=== PATIENT | female | born 1960 | race Caucasian/White ===

== ENCOUNTER 2016-07-11 06:07 | Day surgery (SDC) | payer OTHER ==
[2016-07-06 11:47] VITALS: BMI 29.4
[2016-07-11] MEDS ORDERED: morphine CARPU-JECT 10 MG/1 ML DISP.SYRIN ONE (07:09)
[2016-07-11] MEDS ORDERED: KETOROLAC TROMETHAMINE 60 MG/2 ML VIAL ONE (07:09)
[2016-07-11] MEDS ORDERED: BUPIVACAINE HCL 0.25% 125 MG/50 ML VIAL ONE (07:09)
[2016-07-11] MEDS ORDERED: EPINEPHrine 1:1,000 1 MG/1 ML - 30ML VIAL (INJECTION) ONE (07:10)
[2016-07-11] MEDS ORDERED: MIDAZOLAM HCL 2 MG/2 ML SINGLE DOSE VIAL ONE (07:37)
[2016-07-11] MEDS ORDERED: LIDOCAINE HCL/PF 2% SDV 5ML VIAL ONE (07:37)
[2016-07-11] MEDS ORDERED: PROPOFOL 20 ML ONE ×2 (07:37→09:16)
[2016-07-11] MEDS ORDERED: SUCCINYLCHOLINE CHLORIDE 200 MG/10 ML VIAL ONE (07:37)
[2016-07-11] MEDS ORDERED: ONDANSETRON 4 MG/2 ML VIAL ONE (08:21)
[2016-07-11] MEDS ORDERED: DEXAMETHASONE SOD PHOSPHATE 4 MG/1 ML VIAL ONE (08:21)
[2016-07-11] MEDS ORDERED: KETOROLAC TROMETHAMINE 30 MG/1 ML VIAL ONE ×2 (08:21→09:05)
[2016-07-11] MEDS ORDERED: BUPIVACAINE HCL/PF 0.25% (2.5MG/ML) 10 ML VIAL IJ ONE (08:28)
[2016-07-11] MEDS ORDERED: KETOROLAC TROMETHAMINE 30 MG/1 ML VIAL IM ONE (09:15)
[2016-07-11] MEDS ORDERED: LACTATED RINGERS SOLUTION 1,000 ML IV SCH (09:15)
[2016-07-11] MEDS ORDERED: oxyCODONE HCL 5 MG TABLET PO PRN (09:23)
[2016-07-11] MEDS ORDERED: ONDANSETRON 4 MG/2 ML VIAL IVPUSH PRN (09:23)
[2016-07-11 09:29] VITALS: TEMP 97.7
[2016-07-11 09:54] VITALS: PULSE 60
[2016-07-11 12:02] VITALS: BP 133/87
--- NOTE | 2016-07-11 12:36 | OP ---
DATE OF OPERATION: 07/11/2016 ANESTHESIOLOGIST: Ivana Dozier MD TYPE OF ANESTHESIA: LMA general. PREOPERATIVE DIAGNOSIS: Left knee complex medial meniscus tear. POSTOPERATIVE DIAGNOSIS: Left knee complex medial meniscus tear. PROCEDURE: Left knee arthroscopy, partial medial meniscectomy. Kefzol was given preoperatively for prophylaxis against infection. TOURNIQUET TIME: Approximately 20 minutes. Marcaine 0.25%,10 mL, was instilled in the skin prior to skin incision. At the conclusion of the procedure, 10 mg of morphine and 300 mg of Toradol were instilled in the knee for additional analgesia. SURGEON: Christ Stout MD INDICATIONS: The patient is a 55-year-old female with complaints of sharp stabbing left knee pain status post falling. She had an MRI showing a complex tear involving the posterior horn of the medial meniscus and mild chondromalacia of the medial compartment. Treatment options were reviewed with the patient. Both operative and non-operative treatments were discussed with the patient. Patient wished to proceed with surgery. The risks of surgery were explained to include, but not be limited to, infection, stiffness, continued pain, chance that should she have significant arthritis and her symptoms coming from the arthritis, that symptoms may not improve, and in fact, there is a small chance they may worsen, and chance she may need additional surgery to treat the above complications, chance that should we perform a repair, the repair may not heal, and she may need to come back to the OR for removing the meniscus, chance that she could develop complex regional pain syndrome with sequelae and additional treatment leaving with permanent constant pain and loss of use of function of the leg. Patient understands this. She understands the complications are real, although uncommon, and she would like to proceed with the planned procedure. I again reviewed the options and postoperative course with the patient and the patients family, who were at the bedside. Patients daughter was translating. Patient demonstrates an excellent understanding of what I have explained to her. She would like to proceed with the planned procedure. She has identified her left knee as the operative site. This was confirmed with the operating room staff, which I signed, and she agrees to proceed with the planned procedure. PROCEDURE IS FOLLOWS: After administration of LMA general anesthetic by the anesthesiologist, tourniquet was placed high on the left leg, and the left leg was then prepped and draped in the usual sterile manner. Tourniquet was inflated. The aforementioned local was instilled in the knee. Diagnostic arthroscopy was then performed through anteromedial and anterolateral portals after inflating tourniquet. Upon entering the knee, the patient had minimal chondromalacia of the patellofemoral and medial compartment. There was a complex tear with both vertical, horizontal, and radial components of the posterior horn extending into the body and into the anterior horn of the medial meniscus. The tear pattern was not repairable. Partial medial meniscectomy was then performed using the arthroscopic shaver and arthroscopic biters to stabilize the remaining medial meniscus down to smooth, stable construct. The intercondylar notch was then visualized showing intact ACL and PCL. The lateral compartment was then visualized showing relatively pristine cartilaginous surfaces of the lateral femoral condyle, lateral tibial plateau, as well as lateral meniscus. All arthroscopic fluid and debris were then removed using the arthroscopic shaver to suction. The wounds were then closed with 3-0 nylon sutures. The aforementioned local of Toradol and morphine, 10 mg of morphine and 30 mg of Toradol, were instilled into the knee. The wounds were then dressed with Adaptic, 4x4 gauze, ABD pad, held in place with loosely applied Gaston wrap. The patient was awoken and transported to the recovery room in stable condition having tolerated the procedure without any incident. Postoperatively, the patient is going to be full weightbearing as tolerated. She is going to minimize how much walking and standing she does for the first 10 days. She is going to start physical therapy postoperative day 1. She has already had 3 appointments set up for her. We have explained her postoperative medications as well as the need for her showering and self-care habits. She will follow up in the office in approximately 10 days. An appointment for a followup appointment has already been provided for the patient. CHRIST STOUT M.D. [id number]
== END 2016-07-11 12:25 | disposition home or self-care (01) ==
LOC: FASU 06:07
PROVIDERS: ATTEND Orthopaedic Surgery
PROC: 0SBD4ZZ Excision of Left Knee Joint, Percutaneous Endoscopic Approach (ICD-10-PCS; principal; 2016-07-11 08:28)
DX: S83.232A Complex tear of medial meniscus, current injury, left knee, initial encounter (principal); X58.XXXA Exposure to other specified factors, initial encounter; Y93.9 Activity, unspecified; Y92.9 Unspecified place or not applicable
CPT/HCPCS: 94760